=== PATIENT | male | born 1980 | race Caucasian/White ===

== ENCOUNTER → 2018-06-28 | Outpatient (CLI) | payer BC ==
[2018-06-28 06:43] LABS: BASO % 0.3 % (0.0-1.0); EOS # 0.2 10*3/uL (0.0-0.4); EOS % 2.8 % (1.0-4.0); HEMATOCRIT 43.6 % (42.0-52.0); HEMOGLOBIN 14.7 g/dl (14.0-18.0); LYMPH # 2.6 10*3/uL (1.3-4.4); LYMPH % 37.9 % (27.0-41.0); MEAN CELL VOLUME 87.6 fl (80.0-94.0); MEAN CORPUSCULAR HGB 29.5 pg (27.0-31.0); MEAN CORPUSCULAR HGB CONC 33.7 g/dl (33.0-37.0); MEAN PLATELET VOLUME 9.7 fl (9.6-12.3); MONO # 0.6 10*3/uL (0.1-1.0); MONO % 8.3 % (3.0-9.0); NEUT # 3.4 10*3/uL (2.3-7.9); NEUT % 50.4 % (47.0-73.0); PLATELET COUNT AUTOMATED 198 10*3/uL (130-400); RED BLOOD COUNT 4.98 10*6/uL (4.50-5.90); RED CELL DISTRI WIDTH 13.3 % (0-14.5); WHITE BLOOD COUNT 6.8 10*3/uL (4.8-10.8)
[2018-06-28 06:57] LABS: ALBUMIN 3.7 gm/dl (3.1-4.5); BUN 13 mg/dl (7-24); CHLORIDE 106 mmol/L (98-107); POTASSIUM 3.8 mmol/L (3.5-5.1); SODIUM 141 mmol/L (136-145)
[2018-06-28 07:10] LABS: ALKALINE PHOSPHATASE 84 U/L (45-117); CHOLESTEROL 177 mg/dL (<200); CREATININE 1.01 mg/dL (0.70-1.30); HDL CHOLESTEROL 24 mg/dl (40-60); LDL CHOLESTEROL 90 mg/dL (9-159); SGOT/AST 26 IU/L (3-35); SGPT/ALT 54 U/L (12-78); TOTAL PROTEIN 7.6 gm/dL (6.4-8.2); TRIGLYCERIDES 315 mg/dl (<150); VLDL CHOLESTEROL 63 mg/dL (6-40)
== END | disposition home or self-care (01) ==
LOC: LAB 05:56
PROVIDERS: Family Medicine
DX: E78.00 Pure hypercholesterolemia, unspecified (principal); R53.83 Other fatigue; R42 Dizziness and giddiness; R50.9 Fever, unspecified

== ENCOUNTER → 2022-02-28 | Outpatient (CLI) | payer OTHER | END | disposition home or self-care (01) | LOC: CARD 08:30 | PROVIDERS: ATTEND Student in an Organized Health Care Education/Training Program | DX: I49.1 Atrial premature depolarization (principal) ==